=== PATIENT | female | born 1970 | race African-American/Black ===

== ENCOUNTER 2022-01-17 10:42 | Inpatient (IN) | payer OTHER ==
[2022-01-17] MEDS ORDERED: BISMUTH SUBSALICYLATE 262 MG/15 ML BTL PO PRN (11:26)
[2022-01-17] MEDS ORDERED: MAG HYDROX/AL HYDROX/SIMETH 30 ML UNIT-DOSE CUP PO PRN (11:26)
[2022-01-17] MEDS ORDERED: MAGNESIUM HYDROX 2400MG/30ML ORAL SUSPENSION 30 ML CUP PO PRN (11:26)
[2022-01-17] MEDS ORDERED: ONDANSETRON *ODT* 4 MG TABLET SL PRN (11:26)
[2022-01-17] MEDS ORDERED: MAGNESIUM CITRATE 300 ML BOTTLE PO PRN (11:26)
[2022-01-17] MEDS ORDERED: BENZOCAINE/MENTHOL (CHLORASEPTIC ) LOZENGE MM PRN (11:26)
[2022-01-17] MEDS ORDERED: NICOTINE 10 MG CARTRIDGE (INHALER) IH PRN (11:26)
[2022-01-17] MEDS ORDERED: DICYCLOMINE HCL 10 MG CAPSULE PO PRN (11:26)
[2022-01-17] MEDS ORDERED: LOPERAMIDE HCL 2 MG CAPSULE PO PRN (11:26)
[2022-01-17] MEDS ORDERED: ACETAMINOPHEN 325 MG TABLET (FP) PO PRN ×2 (11:26)
[2022-01-17] MEDS ORDERED: IBUPROFEN 400 MG TABLET (FP) PO PRN (11:26)
[2022-01-17 12:56] VITALS: BMI 22.6
[2022-01-17] MEDS ORDERED: methaDONE HCL 10 MG TABLET PO SCH (14:00)
[2022-01-17] MEDS ORDERED: methaDONE HCL 10 MG TABLET ONE (14:48)
[2022-01-17] MEDS ORDERED: methaDONE HCL 40 MG DISPERSABLE TABLET ONE (14:48)
[2022-01-17] MEDS: NICOTINE 7 MG/24 HOURS TOPICAL PATCH TD SCH (15:02)
[2022-01-17] MEDS: hydrOXYzine PAMOATE 25 MG CAPSULE (FP) PO SCH ×3 (15:13→23:01)
[2022-01-17 17:06] LABS: HEMATOCRIT 39.4 % (32.4-45.2); HEMOGLOBIN 12.6 GM/dL (10.7-15.3); MCH 28.4 pg (25.7-33.7); MCHC 31.9 g/dl (32.0-36.0); MEAN CELL VOLUME 88.9 fl (80-96); MEAN PLT VOLUME 8.1 fl (7.5-11.1); PLATELET COUNT 287 10^3/uL (134-434); RBC 4.43 M/mm3 (3.60-5.2); RDW 13.4 % (11.6-15.6); WHITE BLOOD COUNT 6.2 K/mm3 (4.0-10.0)
[2022-01-17 17:12] LABS: ALBUMIN 3.3 g/dl (3.4-5.0); BLOOD UREA NITROGEN 9.8 mg/dL (7-18); CALCIUM 8.7 mg/dL (8.5-10.1)
[2022-01-17 17:15] LABS: CREATININE 0.8 mg/dL (0.55-1.3)
[2022-01-17 17:17] LABS: BILIRUBIN,TOTAL 0.6 mg/dL (0.2-1); TOT PROT 6.8 g/dl (6.4-8.2)
[2022-01-17] MEDS: THIAMINE HCL 100 MG TABLET (FP) PO SCH (23:01)
[2022-01-17] MEDS: MELATONIN 5 MG TABLETS PO SCH (23:01)
[2022-01-18] MEDS ORDERED: methaDONE HCL 40 MG DISPERSABLE TABLET ONE (04:04)
[2022-01-18] MEDS ORDERED: methaDONE HCL 10 MG TABLET ONE (04:04)
[2022-01-18] MEDS: hydrOXYzine PAMOATE 25 MG CAPSULE (FP) PO SCH ×5 (06:01→22:22)
[2022-01-18] MEDS: PRENATAL VITAMINS W/ FOLIC ACID TABLET (FP) PO SCH (10:08)
[2022-01-18] MEDS: NICOTINE 7 MG/24 HOURS TOPICAL PATCH TD SCH (10:08)
[2022-01-18] MEDS ORDERED: chlordiazePOXIDE HCL 25 MG CAPSULE PO PRN (10:36)
[2022-01-18] MEDS: chlordiazePOXIDE HCL 25 MG CAPSULE PO SCH ×3 (12:25→22:20)
[2022-01-18] MEDS: THIAMINE HCL 100 MG TABLET (FP) PO SCH (22:20)
[2022-01-18] MEDS: MELATONIN 5 MG TABLETS PO SCH (22:20)
[2022-01-19] MEDS ORDERED: methaDONE HCL 10 MG TABLET ONE (04:51)
[2022-01-19] MEDS ORDERED: methaDONE HCL 40 MG DISPERSABLE TABLET ONE (04:52)
[2022-01-19] MEDS: chlordiazePOXIDE HCL 25 MG CAPSULE PO SCH ×4 (06:55→22:32)
[2022-01-19] MEDS: hydrOXYzine PAMOATE 25 MG CAPSULE (FP) PO SCH ×5 (06:56→22:32)
[2022-01-19] MEDS: NICOTINE 7 MG/24 HOURS TOPICAL PATCH TD SCH (10:37)
[2022-01-19] MEDS: PRENATAL VITAMINS W/ FOLIC ACID TABLET (FP) PO SCH (10:37)
[2022-01-19] MEDS: METHOCARBAMOL 500 MG TABLET PO PRN ×2 (10:38→22:31)
[2022-01-19] MEDS: LIDOCAINE 5% TOPICAL PATCH TP SCH (14:03)
[2022-01-19 16:08] LABS: SARS-CoV-2 NAA Not Detected (Not Detected)
[2022-01-19] MEDS: MELATONIN 5 MG TABLETS PO SCH (22:32)
[2022-01-19] MEDS: THIAMINE HCL 100 MG TABLET (FP) PO SCH (22:32)
[2022-01-19] MEDS: LIDOCAINE PATCH REMOVAL MC SCH (23:27)
[2022-01-20] MEDS ORDERED: methaDONE HCL 10 MG TABLET ONE (06:35)
[2022-01-20] MEDS: chlordiazePOXIDE HCL 25 MG CAPSULE PO SCH ×4 (06:36→22:25)
[2022-01-20] MEDS: hydrOXYzine PAMOATE 25 MG CAPSULE (FP) PO SCH ×5 (06:36→22:25)
[2022-01-20] MEDS ORDERED: methaDONE HCL 40 MG DISPERSABLE TABLET ONE (06:36)
[2022-01-20] MEDS: PRENATAL VITAMINS W/ FOLIC ACID TABLET (FP) PO SCH (10:27)
[2022-01-20] MEDS: NICOTINE 7 MG/24 HOURS TOPICAL PATCH TD SCH (10:29)
[2022-01-20] MEDS: LIDOCAINE 5% TOPICAL PATCH TP SCH (11:34)
[2022-01-20] MEDS: LIDOCAINE PATCH REMOVAL MC SCH (22:25)
[2022-01-20] MEDS: THIAMINE HCL 100 MG TABLET (FP) PO SCH (22:25)
[2022-01-20] MEDS: MELATONIN 5 MG TABLETS PO SCH (22:25)
[2022-01-20] MEDS: METHOCARBAMOL 500 MG TABLET PO PRN (22:27)
[2022-01-21] MEDS ORDERED: chlordiazePOXIDE HCL 10 MG CAPSULE PO PRN
[2022-01-21] MEDS ORDERED: methaDONE HCL 10 MG TABLET ONE (04:45)
[2022-01-21] MEDS ORDERED: methaDONE HCL 40 MG DISPERSABLE TABLET ONE (04:45)
[2022-01-21] MEDS: hydrOXYzine PAMOATE 25 MG CAPSULE (FP) PO SCH ×2 (06:32→10:35)
[2022-01-21] MEDS: chlordiazePOXIDE HCL 10 MG CAPSULE PO SCH ×2 (06:32→10:35)
[2022-01-21 07:59] VITALS: BP 121/66; PULSE 68; TEMP 97.5
[2022-01-21] MEDS: PRENATAL VITAMINS W/ FOLIC ACID TABLET (FP) PO SCH (10:35)
[2022-01-21] MEDS: LIDOCAINE 5% TOPICAL PATCH TP SCH (10:35)
[2022-01-21] MEDS: NICOTINE 7 MG/24 HOURS TOPICAL PATCH TD SCH (10:35)
[2022-01-22] MEDS ORDERED: chlordiazePOXIDE HCL 10 MG CAPSULE PO SCH (05:00)
[2022-01-23] MEDS ORDERED: chlordiazePOXIDE HCL 10 MG CAPSULE PO ONE (05:00)
== END 2022-01-21 09:20 | disposition home or self-care (01) | DRG 773 ==
LOC: YASAS 10:42 → Y3N 13:13
PROVIDERS: ADMIT Allergy & Immunology; ATTEND Allergy & Immunology
PROC: HZ2ZZZZ Detoxification Services for Substance Abuse Treatment (ICD-10-PCS; principal; 2022-01-17)
DX: F10.230 Alcohol dependence with withdrawal, uncomplicated (principal); F11.20 Opioid dependence, uncomplicated; F14.20 Cocaine dependence, uncomplicated; F17.210 Nicotine dependence, cigarettes, uncomplicated; M54.50 Low back pain, unspecified; G89.29 Other chronic pain; R00.1 Bradycardia, unspecified; Z86.19 Personal history of other infectious and parasitic diseases; Z28.310 Unvaccinated for COVID-19
CPT/HCPCS: 36415; 72100-TC-FY; 80053; 81025; 85027; 86593; 86780; 93005; 93010; C9803-CS; U0003; U0005